=== PATIENT | female | born 1950 | race African-American/Black ===

== ENCOUNTER 2020-11-21 16:24 | Inpatient (IN) | payer OTHER ==
[~2020-11-21] VITALS: Ht 175.3 cm; Wt 119.3 kg
[2020-11-21 18:40] LABS: BASOPHILS 0.6 % (0.0-2.0); EOSINOPHILS 0.9 % (0.0-3.0); HEMATOCRIT 30.3 % (37.0-47.0); HEMOGLOBIN 9.3 gm/dL (12.0-15.0); LYMPHOCYTES 9.1 % (24.0-44.0); MCH 29.1 pg (26.0-34.0); MCHC 30.8 g/dL (28.0-37.0); MCV 94.3 fL (80.0-100.0); MONOCYTES 4.4 % (1.0-8.0); PLATELET COUNT 305 thou/uL (150-400); RBC 3.21 mil/uL (4.20-5.00); RDW 18.6 % (10.5-14.5); WBC 5.8 thou/uL (4.0-11.0)
[2020-11-21 18:53] LABS: URINE BILIRUBIN NEGATIVE (Negative); URINE BLOOD TRACE (Negative); URINE CLARITY CLEAR; URINE COLOR YELLOW; URINE GLUCOSE-RANDOM* NEGATIVE (Negative); URINE KETONES NEGATIVE (Negative); URINE LEUKOCYTES-REFLEX TRACE (Negative); URINE NITRITE-REFLEX NEGATIVE (Negative); URINE PROTEIN (DIPSTICK) 2+ (Negative); URINE UROBILINOGEN 0.2 E.U./dl (0.2-1.0)
[2020-11-21 18:54] LABS: ANION GAP 11 mmol/L (7-16); BUN 12 mg/dL (7-18); CALCIUM 8.6 mg/dL (8.5-10.1); CHLORIDE 104 mmol/L (98-107); CO2 25 mmol/L (21-32); CREATININE 1.1 mg/dL (0.6-1.0); GLUCOSE 106 mg/dL (74-106); POTASSIUM 3.8 mmol/L (3.5-5.1); SODIUM 140 mmol/L (136-145)
[2020-11-21 19:04] LABS: SQUAMOUS >10 Many /LPF (0-3)
[2020-11-21 19:04] LABS: ALBUMIN 2.1 g/dL (3.4-5.0); AMYLASE 90 U/L (25-115); DIRECT BILIRUBIN 0.1 mg/dL (<0.1-0.2); LIPASE 92 U/L (73-393); MAGNESIUM 1.7 mg/dL (1.8-2.4); PHOSPHORUS 3.1 mg/dL (2.6-4.7); SGOT 39 U/L (15-37); SGPT 17 U/L (14-59); TOTAL BILIRUBIN 0.4 mg/dL (0.2-1.0); TOTAL PROTEIN 7.2 g/dL (6.4-8.2); TROPONIN-I <0.06 ng/mL (<0.06)
[2020-11-21 19:05] LABS: BACTERIA-REFLEX None Seen /HPF (None Seen); CASTS None Seen /LPF (None Seen); CRYSTALS None Seen /LPF (None Seen); URINE RBC 0-2 Rare /HPF (0-2); URINE WBC-REFLEX 0-5 Rare /HPF (0-5)
[2020-11-21 19:14] LABS: ANISOCYTOSIS 2+
[2020-11-21 20:23] LABS: CHOLESTEROL 155 mg/dL (<200); HDL CHOLESTEROL 35 mg/dL (>40); LDL CHOLESTEROL 82 mg/dL (<100); SERUM ASSESSMENT Clear; TC:HDL 4.4 Ratio (Not establshd); TRIGLYCERIDE 193 mg/dL (<150); VLDL 39 mg/dL (<40)
[2020-11-21 23:48] VITALS: BP 96/43
[2020-11-22 01:01] VITALS: BP 115/64
[2020-11-22 01:35] VITALS: BP 119/73
[2020-11-22] MEDS ORDERED: NEURONTIN 400400 M1 PO (02:18)
[2020-11-22] MEDS ORDERED: ELIQUIS5 MG PO (02:19)
[2020-11-22] MEDS ORDERED: OMEPRAZOLE 20 M20 M1 PO (02:20)
[2020-11-22] MEDS ORDERED: CYCLOBENZAPRINE10 MG PO (02:21)
[2020-11-22] MEDS ORDERED: ONDANSETRON HCL4 M3 PO (02:24)
[2020-11-22] MEDS ORDERED: PROZAC20 MG PO (02:24)
[2020-11-22] MEDS ORDERED: MIRTAZAPINE15 M2 PO (02:25)
[2020-11-22] MEDS ORDERED: HYDROXYCHLOROQ200 M1 PO (02:27)
[2020-11-22] MEDS ORDERED: FOLIC ACID1 MG PO (02:29)
[2020-11-22] MEDS ORDERED: LEVOTHYROXINE25 MCG PO (02:30)
[2020-11-22] MEDS ORDERED: VITAMIN C500 M2 PO (02:33)
[2020-11-22] MEDS ORDERED: THERA-D100 MCG PO (02:35)
[2020-11-22] MEDS ORDERED: DAPTOMYCIN350 MG IV (02:36)
[2020-11-22] MEDS ORDERED: COLACE100 MG PO (02:37)
[2020-11-22] MEDS ORDERED: FEOSOL325 M1 PO (02:38)
[2020-11-22] MEDS ORDERED: MIRALAX119 GM PO (02:39)
[2020-11-22] MEDS ORDERED: IPRAT-ALBUT 0.5-3 ML INH (02:40)
[2020-11-22] MEDS ORDERED: MELATONIN3 M1 PO (02:41)
[2020-11-22] MEDS ORDERED: MERREM500 MG IVPB (02:42)
[2020-11-22] MEDS ORDERED: MICONAZOLE NITR45 G3 TOP (02:43)
[2020-11-22] MEDS ORDERED: SENNA PLUS TAB1 EACH PO (02:44)
[2020-11-22] MEDS ORDERED: SILVASORB480 ML TOP (02:46)
[2020-11-22] MEDS ORDERED: TYLENOL EXTRA500 MG PO (02:47)
[2020-11-22] MEDS ORDERED: ZINC SULFATE220 MG PO (02:47)
[2020-11-22 04:18] LABS: ANION GAP 12 mmol/L (7-16); BUN 11 mg/dL (7-18); CALCIUM 8.1 mg/dL (8.5-10.1); CHLORIDE 103 mmol/L (98-107); CO2 25 mmol/L (21-32); CREATININE 1.2 mg/dL (0.6-1.0); GLUCOSE 91 mg/dL (74-106); MAGNESIUM 2.2 mg/dL (1.8-2.4); POTASSIUM 3.5 mmol/L (3.5-5.1); SODIUM 140 mmol/L (136-145); TROPONIN-I <0.06 ng/mL (<0.06)
--- NOTE | 2020-11-22 05:00 | NUR ---
Arrived from ER around 0115 on 4L/NC. O2 sat of 98% , O2 titrated down to 3L/NC. Denies being short of breath. Placed on enhanced precaution , afebrile. Denies any chest pain stating she had it but now it's better. Left hip incision has sutures and has drainage , cleaned with NS and dressing applied. Right thigh has open ulcer ,dressing applied and right 2nd toe also has open area. Bed alarm on , external female cath in place. Pt. has $ 148.00 arriola in her wallet that has been verified by another RN and sent to security ,receipt given to pt.
[2020-11-22 05:13] VITALS: BP 142/92
[2020-11-22 05:19] LABS: HEMATOCRIT 28.3 % (37.0-47.0); HEMOGLOBIN 8.8 gm/dL (12.0-15.0); MCH 29.6 pg (26.0-34.0); MCV 95.5 fL (80.0-100.0); RBC 2.97 mil/uL (4.20-5.00); RDW 19.2 % (10.5-14.5); WBC 4.2 thou/uL (4.0-11.0)
--- NOTE | 2020-11-22 07:17 | EKG ---
[address] [place] [address] ELECTROCARDIOGRAM REPORT Name: SKYLAR SILVA Room #: 362-P ADM IN M.R.#: [id number] Admission: 11/21/20 Attend Phys: Samy Reina MD Discharge: Date of : 52 Report #: [id number] [facility] ED Test Date: 2020-11-21 Test Time: 16:37:10 Pat Name: SKYLAR SILVA Department: Room: 362 Gender: F Clinical Phlebotomist: MARCY : 1950 Requested By: Jossue Guillen Order Number: [id number] MD: John Viramontes Measurements Intervals [place] Rate: 105 P: 71 [place]: 191 QRS: -7 QRSD: 85 T: 39 QT: 362 QTc: 479 Interpretive Statements Sinus tachycardia Borderline T abnormalities, anterior leads Borderline prolonged QT interval No previous ECG available for comparison Electronically Signed On 11-22-2020 7:17:09 MANAGER [employer] by John Viramontes [email or web address] <ELECTRONICALLY SIGNED> By: John Viramontes MD, [facility] 11/22/20 0717 [id number] [id number] John Viramontes MD, FACC /EPI
[2020-11-22 07:45] VITALS: BP 120/74
--- NOTE | 2020-11-22 15:06 | NUR ---
INITIAL ASSESSMENT: Received consult for discharge planning. ED reviewed chart and spoke with nursing and attending physician. Pt was admitted from [facility] due to pneumonia. Pt placed in Enhanced Isolation due to positive COVID test. Pt has been febrile and is on 3L of O2. Pt is on IV abx. ID consulted. ED spoke with pt via phone. Introduced role of SW. Pt appears to be alert/orientated. Pt reports that she has been at [facility] for short term rehab. Pt normally lives at home. Pt confirms plan is to return to [facility] for continued theraoy services. Pt has a walker and w/c. Pt is not normally on O2. Pt's PCP is Dr. Gisela Reno at [facility]. [employer] planners to fax clinical info to [facility] for review. ED spoke with Ynes in admissions, who states that that pt has not tested positive at the facility prior to admission. Confirmed they are able to accept pt back when discharged. ED is following to assist as needed with discharge planning.
--- NOTE | 2020-11-22 15:52 | NUR ---
FAXED CLINICAL UPDATE TO [facility] SPOKE WITH CHRISTY IN ADM SHE RECEIVED UPDATE.
[2020-11-22 16:40] VITALS: BP 116/73
[2020-11-22 20:28] VITALS: BP 143/91
[2020-11-23 01:06] LABS: GLYCOHEMOGLOBIN (HGB A1C) 5.6 % (4.8-5.6)
[2020-11-23 02:08] LABS: HEMATOCRIT 27.7 % (37.0-47.0); HEMOGLOBIN 8.8 gm/dL (12.0-15.0); MCH 30.2 pg (26.0-34.0); MCHC 31.6 g/dL (28.0-37.0); MCV 95.6 fL (80.0-100.0); RBC 2.9 mil/uL (4.20-5.00); RDW 18.2 % (10.5-14.5)
[2020-11-23 04:52] VITALS: BP 149/100
--- NOTE | 2020-11-23 06:05 | NUR ---
Pt. up in the commode with assist at HS and again this am and had bm. Incontinent of bladder ,refused external cath initially at HS then this am she agreed to have it placed. Dr. Phoenix Sanchez came in to see pt. last night. MRSA and flu swabs sent to lab. Pt. given a cup for sputum sample. Maintaining O2 sat in the mid to upper 90's on 2L/NC. Denies being short of breath. Requested pain med for her leg and hip pain. STEF Carreon notified and order received. Hydrocodone given x 1 with some relief. Denies chest discomfort. She slept fair during the night. Ivermectin and remdesivir given to pt. Consent signed (verbal) to get records form [facility] and consent for convalescent plasma obtained and verified with another RN. Cont. on enhanced precaution , afebrile. Bed alarm on for safety.
[2020-11-23 11:38] VITALS: BP 154/97; BP 155/106
--- NOTE | 2020-11-23 12:36 | NUR ---
ED reviewed chart and spoke with nursing and attending physician. Pt remains in Enhanced Isolation due to COVID. Pt is afebrile and requiring 2L of O2. Pt is on IV abx and IV steroids. Pt had convalescent plasma last night and has been started on Remdesivir and Ivermectin. ED spoke with Ynes in admissions at [facility] to provide update. Plan is for pt to return to [facility] when medically stable. ED is following to assist as needed with discharge planning.
[2020-11-23 13:31] LABS: POTASSIUM 3.6 mmol/L (3.5-5.1)
[2020-11-23 14:34] LABS: ALBUMIN 2.1 g/dL (3.4-5.0); ANION GAP 15 mmol/L (7-16); BUN 14 mg/dL (7-18); CALCIUM 8.8 mg/dL (8.5-10.1); CHLORIDE 107 mmol/L (98-107); CO2 21 mmol/L (21-32); CREATININE 1.1 mg/dL (0.6-1.0); DIRECT BILIRUBIN < 0.1 mg/dL (<0.1-0.2); GLUCOSE 155 mg/dL (74-106); PHOSPHORUS 2.6 mg/dL (2.5-4.9); SGOT 37 U/L (15-37); SGPT 16 U/L (30-65); SODIUM 143 mmol/L (136-145); TOTAL BILIRUBIN 0.2 mg/dL (0.2-1.0); TOTAL PROTEIN 7.5 g/dL (6.4-8.2)
[2020-11-23 15:40] VITALS: BP 110/67
[2020-11-23 15:53] VITALS: BP 161/100
--- NOTE | 2020-11-23 18:15 | NUR ---
dressings changed per order. plasma transfused without problems. asking for hydrocodone to be changed to oxycodone - relayed to physician. up to chair for part of day. incontinent w. ext female cath in place. calls appropriately. hypertensive at times - physician aware.
[2020-11-23 20:00] VITALS: BP 156/103
[2020-11-23 21:00] VITALS: BP 156/103
[2020-11-24 04:25] VITALS: BP 169/105
--- NOTE | 2020-11-24 04:27 | NUR ---
PROGRESS PT A/O X4 BP ELEVATED 160'S/100'S PULSE IN 80'S TELE READING SINUS RHYTHM. MULTIPLE DRESSING NOTED TO LEFT HIP, RIGHT WHITE BOTH HEELS AND ANKLES ALL C/D/I. PT REPOSITIONED Q2HRS ABLE TO HELP TURN SELF. DENIED NEED FOR PAIN MEDICATION. LUNGS DIMINISHED AND PT HAS A PRODUCTIVE COUGH COUGHING UP SMALL THICK PIECES OF SPUTUM THAT ARE THICK AND BROWN SPECKS AND PINK TINGE NOTED TO IT. O2 SATS DROPPED TO 70'S TO LOW 80'S AROUND 4 AM RT GAVE BREATHING TREATMENT AND INCREASED O2 TO 6 LITERS VIA NC. SATS IN MID 90'S. PT HAS A KSENIA SINGLE LUMEN PICC WITH GOOD BLOOD RETURN AND FLUSHES WITHOUT DIFFICULTY. PURE WICK EXTERNAL BEAVERS IN PLACE DRAINING CLEAR YELLOW URINE.
[2020-11-24 05:54] LABS: ABSOLUTE NEUTROPHILS 6.5 thou/uL (1.4-8.2); BASOPHILS 0.1 % (0.0-2.0); HEMATOCRIT 29.8 % (37.0-47.0); HEMOGLOBIN 9.2 gm/dL (12.0-15.0); LYMPHOCYTES 8.3 % (24.0-44.0); MCH 29.2 pg (26.0-34.0); MCHC 30.7 g/dL (28.0-37.0); MCV 94.9 fL (80.0-100.0); PLATELET COUNT 339 thou/uL (150-400); POLYS 88.6 % (36.0-66.0); RBC 3.14 mil/uL (4.20-5.00); RDW 18.6 % (10.5-14.5); WBC 7.3 thou/uL (4.0-11.0)
[2020-11-24 06:01] LABS: FIBRINOGEN 373.8 mg/dL (210-360); INR 1.1; PROTIME 11.7 Seconds (9.3-11.4)
[2020-11-24 06:32] LABS: ALBUMIN 1.9 g/dL (3.4-5.0); ANION GAP 15 mmol/L (7-16); BUN 15 mg/dL (7-18); CALCIUM 8.4 mg/dL (8.5-10.1); CHLORIDE 108 mmol/L (98-107); CO2 22 mmol/L (21-32); CREATININE 1.1 mg/dL (0.6-1.0); DIRECT BILIRUBIN < 0.1 mg/dL (<0.1-0.2); GLUCOSE 112 mg/dL (74-106); PHOSPHORUS 2.6 mg/dL (2.5-4.9); POTASSIUM 3.7 mmol/L (3.5-5.1); SGOT 37 U/L (15-37); SGPT 18 U/L (30-65); SODIUM 145 mmol/L (136-145); TOTAL BILIRUBIN 0.2 mg/dL (0.2-1.0)
[2020-11-24 07:47] VITALS: BP 176/112
--- NOTE | 2020-11-24 08:00 | HC ---
[facility] [place] [address] CONSULTATION Name: SKYLAR SILVA Room #: 362-P ADM IN M.R.#: [id number] Admission: 11/21/20 Attend Phys: Samy Reina MD Discharge: Date of : 52 Report #: [id number] THIS REPORT FOR: cc: Zachary Sanchez MD, Christopher B. MD Althoff,João Qureshi MD ~ DATE OF SERVICE: 11/22/2020 CHIEF COMPLAINT: Multiple lower extremity ulcerations. HISTORY OF PRESENT ILLNESS: This is a 69-year-old female patient who was admitted through the Emergency Department and is a resident at the [facility]. She apparently has been complaining of chest pain, was admitted. She was noted to have multiple ulcerations on her lower extremities. She has had 5 surgeries to her left hip and some residual sutures in place. I have been asked to see her with regard to wound care. PAST MEDICAL HISTORY: Anxiety, hypothyroidism, MRSA infection, left hip infection, renal insufficiency requiring hemodialysis, rheumatoid arthritis, obesity, depression, hepatitis C and anemia. She has had multiple surgeries on her left hip, the details of which are not available for my review at this time. SOCIAL HISTORY: The patient lives a nursing care facility. No current use of alcohol or tobacco use. FAMILY HISTORY: Noncontributory. CURRENT MEDICATIONS: Include Tylenol, ipratropium, albuterol, Eliquis, vitamin C, atorvastatin, Zithromax, vitamin D, daptomycin, dexamethasone, famotidine, hydrocodone, ivermectin, metoprolol, nitroglycerin, ondansetron, remdesivir, thiamine, zinc sulfate. ALLERGIES: CODEINE AND ASPIRIN. REVIEW OF SYSTEMS: CONSTITUTIONAL: The patient denies fever, chills or weight loss. NEUROLOGICAL: The patient denies focal weakness, numbness or tingling. EYES: The patient denies visual changes, redness, or drainage. ENT: The patient denies earache, nasal drainage or sore throat. CARDIOVASCULAR: The patient has been complaining of chest pain. Denies palpitations or diaphoresis. PULMONARY: The patient denies cough or shortness of breath. GASTROINTESTINAL: The patient denies nausea, vomiting, diarrhea or abdominal pain. ORTHOPEDIC: The patient is aware of ulcerations on the lower extremities as [facility] [address] [place] [address] CONSULTATION Name: SKYLAR SILVA Room #: 362-P [facility] IN .R.#: [id number] Admission: 11/21/20 Attend Phys: Samy Reina MD Discharge: Date of : 52 Report #: [id number] well as the left hip incision area. Other systems in a 14-point review of systems are negative. PHYSICAL EXAMINATION: VITAL SIGNS: Include temperature 37.1, pulse 86, respiratory rate 16, blood pressure 116/73. GENERAL: This is a somewhat chronically ill-appearing female patient who appears to be in minimal distress. HEENT: Head normocephalic. NECK: Supple. LUNGS: Clear. ABDOMEN: Soft. EXTREMITIES: Demonstrate multiple ulcerations. She has a large ulceration to her posterolateral left heel. She has a smaller ulceration on her right heel, there is a larger vascular versus venous ulcer to the right lower leg. She has multiple small wounds versus ulcerations to the right thigh. There is also a small ulceration, possibly arterial to the dorsal aspect of the right second toe with a mix of granulation little surrounding eschar. The left thigh demonstrates that there is an old incision line. There are buried sutures, some of which can be seen in place. LABORATORY DATA: Laboratory studies include sodium 140, potassium 3.5, chloride 103, CO2 of 25, BUN 11, creatinine 1.2, glucose 91. White blood cell count 4.2 with a hemoglobin of 8.8, hematocrit of 28.3. She is COVID-19 positive. CLINICAL IMPRESSION: 1. Stage 3 pressure ulceration to the left heel and right heel vascular versus venous ulceration to the right lower leg, small ulceration versus surgical wound to the right thigh, vascular ulceration to the dorsal aspect of the right second toe and old surgical incision line to the left hip with buried sutures remaining in place. 2. COVID-19 pneumonia. 3. Ongoing chest pain, being evaluated. 4. Hypertension. RECOMMENDATIONS: At this point in time, we will recommend a quarter strength Dakin's moist gauze to both heels and lower leg, right thigh and right dorsal second toe. Recommend Xeroform gauze over the left hip. We will need to try to remove some of the buried sutures if at all possible. She will need continued medical management of her other medical problems including COVID-19 pneumonia, [address] [address] CONSULTATION Name: SKYLAR SILVA Room #: 362-P ADM IN M.R.#: [id number] Admission: 11/21/20 Attend Phys: Samy Reina MD Discharge: Date of : 52 Report #: [id number] ongoing nutritional support. I appreciate being asked to see her in consultation. <ELECTRONICALLY SIGNED> By: João Rivera MD 11/24/20 0800 [id number] [id number] João Rivera MD /nt
[2020-11-24 09:52] LABS: ANISOCYTOSIS 1+; OVALOCYTES OCCASIONAL; POIKILOCYTOSIS SLIGHT; TEARDROPS OCCASIONAL
--- NOTE | 2020-11-24 12:53 | NUR ---
ED reviewed chart and spoke with nursing and attending physician. Pt remains in Enhanced Isolation due to COVID. Pt is afebrile and is requiring up to 13L of O2. Pt is on IV abx and IV steroids. Pt is on IV lasix. Pt is completing Remdesivir and Ivermectin. No weekend discharge planned. ED provided update to Ynes in admissions at [facility]. Plan is for pt to return to [facility] when medically stable. Will need insurance authorization for admission to [facility]. ED is following to assist as needed with discharge planning.
[2020-11-24 15:51] VITALS: BP 170/111
--- NOTE | 2020-11-24 17:52 | NUR ---
ASSUMED CARE OF PT AT 0700. PT APPEARS MORE WEAK THIS MORNING. BREATHING MORE LABORED, RR 30's. REQUIRING MORE OXYGEN. COARSE LUNG SOUNDS. INCREASED TO 15L NC. DIURESED WITH GOOD EFFECT. NOW ON 8-10L NC. LOTS OF OUTPUT. FEELING BETTER. PULM CONSULTED. MASSIMOM.
[2020-11-24 20:07] VITALS: BP 145/99
[2020-11-25 05:11] VITALS: BP 155/98
[2020-11-25 06:57] LABS: ALBUMIN 1.9 g/dL (3.4-5.0); CALCIUM 8.5 mg/dL (8.5-10.1); CREATININE 1.1 mg/dL (0.6-1.0); DIRECT BILIRUBIN 0.1 mg/dL (<0.1-0.2); PHOSPHORUS 3.1 mg/dL (2.5-4.9); POTASSIUM 3.4 mmol/L (3.5-5.1); TOTAL BILIRUBIN 0.3 mg/dL (0.2-1.0); TOTAL PROTEIN 6.9 g/dL (6.4-8.2)
--- NOTE | 2020-11-25 07:04 | NUR ---
PROGRESS PT A/O X4 VERY FATIGUED TODAY SLEEPING MOST OF SHIFT WOKES FOR CARES. DENIES PAIN OR NEED FOR PAIN MEDS, IV ANTIBIOTICS INFUSES D ORDERED PT ENCOURAGED TO DRINK WATER. DRESSINGS INTACT WOUNDS NOT VISUALIZED BY THIS RN ASSISTS IN REPOSITIONING SELF. CONTINUE POC.
[2020-11-25 07:20] VITALS: BP 152/94
[2020-11-25 12:17] VITALS: BP 144/93
--- NOTE | 2020-11-25 14:34 | NUR ---
CARE ASSUMED AT 0700, PT ALERT AND ORIENTED X4, DENIES ANY PAIN, NAUSEA AND VOMITTING. PT WAS ON 6L PER PM NURSE REPORT. PT WAS PLACED ON 11L OF OXYEGN BUT CONTINUED TO DESAT PER RT (AMBER), RT ENDED UP PLAING PT ON 15L. PAGED DR. FLORES AND GAVE ORDERS TO PLACE PT ON OPTIFLOW AND PRN BIPAP IF NEED. PT ON OPTIFLOW NOW, NO SIGNS OF DISTRESS NOTED. FALL PRECAUTION IN PLACE. WILL CONTINUE TO MONITOR.
[2020-11-25 15:56] VITALS: BP 136/91
[2020-11-25 19:19] VITALS: BP 156/108
[2020-11-26 04:36] VITALS: BP 168/107
[2020-11-26 06:50] LABS: ABSOLUTE NEUTROPHILS 7.4 thou/uL (1.4-8.2); BASOPHILS 0.2 % (0.0-2.0); HEMATOCRIT 32.1 % (37.0-47.0); HEMOGLOBIN 9.9 gm/dL (12.0-15.0); LYMPHOCYTES 5.7 % (24.0-44.0); MCH 28.9 pg (26.0-34.0); MCHC 30.9 g/dL (28.0-37.0); MCV 93.4 fL (80.0-100.0); MONOCYTES 2.7 % (1.0-8.0); POLYS 91.4 % (36.0-66.0); RBC 3.44 mil/uL (4.20-5.00); RDW 18.7 % (10.5-14.5); WBC 8.1 thou/uL (4.0-11.0)
[2020-11-26 07:04] LABS: ALBUMIN 1.9 g/dL (3.4-5.0); CALCIUM 8.8 mg/dL (8.5-10.1); CREATININE 1.1 mg/dL (0.6-1.0); D-DIMER 3.58 ug/mLFEU (0.19-0.50); DIRECT BILIRUBIN 0.1 mg/dL (<0.1-0.2); FIBRINOGEN 321.9 mg/dL (210-360); INR 1.2; POTASSIUM 4.7 mmol/L (3.5-5.1); PROTIME 12.6 Seconds (9.3-11.4); TOTAL BILIRUBIN 0.4 mg/dL (0.2-1.0); TOTAL PROTEIN 7.1 g/dL (6.4-8.2)
[2020-11-26 07:05] LABS: PLATELET COUNT 445 thou/uL (150-400)
[2020-11-26 07:27] VITALS: BP 156/101
--- NOTE | 2020-11-26 08:10 | NUR ---
progress pt lethargic ast night sleeping and pulling optiflow off replaced throughout night pt reports pain to legs and arms. advised to request pain meds as needed and to try and sit up in chair today
[2020-11-26 16:23] VITALS: BP 134/80
--- NOTE | 2020-11-26 20:05 | NUR ---
A/O X4. TOLERATED ON OPTIFOLLOW. DRESSING CHANGED PRO ORDER. SOLWLY TOWARDS POC GOALS.
[2020-11-27 03:54] VITALS: BP 162/194
--- NOTE | 2020-11-27 06:45 | NUR ---
PROGRESS PT A/O X4 UP WITH 1 GB AND WALKER. REMAINS ON OPTIFLOW BUT PERCENTAGE OF O2 TURNED DOWN TO 40% PT TOLERATING BETTER. IV ANTIBIOTICS INFUSED ORDERED TAKING OXYCODONE SPARINGLY FOR PAIN IN LEGS, RT TX'S CONTINUE LEAVING OPTIFLOW IN PLACE. CONTINUE TO MONITOR.
[2020-11-27 08:09] VITALS: BP 186/109
[2020-11-27 08:41] LABS: ANION GAP 9 mmol/L (7-16); BUN 32 mg/dL (7-18); CALCIUM 8.6 mg/dL (8.5-10.1); CHLORIDE 108 mmol/L (98-107); CO2 25 mmol/L (21-32); DIRECT BILIRUBIN < 0.1 mg/dL (<0.1-0.2); GLUCOSE 156 mg/dL (74-106); PHOSPHORUS 3.4 mg/dL (2.6-4.7); SGOT 61 U/L (15-37); SGPT 42 U/L (14-59); SODIUM 142 mmol/L (136-145); TOTAL BILIRUBIN 0.2 mg/dL (0.2-1.0); TOTAL PROTEIN 6.4 g/dL (6.4-8.2)
--- NOTE | 2020-11-27 13:40 | NUR ---
ED reviewed chart and spoke with nursing and attending physician. Pt remains in Enhanced Isolation due to COVID. Pt is afebrile and on optiflow. Pt is on IV abx and IV steroids. Pt is completing course of Remdesivir. ED faxed clinical updates to [facility] and spoke with Ynes in admissions to provide update. Plan is for pt to return to [facility] when medically stable. ED is following to assist as needed with discharge planning.
[2020-11-27 15:44] LABS: BE(vivo) -0.3 mmol/L (-2 to +3); HCO3 23.6 mmol/L (22.0-26.0); PCO2 36.1 mmHg (35.0-45.0); PO2 81.5 mmHg (80.0-100.0); pH 7.434 (7.360-7.450); sO2 96.4 % (92.0-98.0)
[2020-11-27 15:54] VITALS: BP 151/93
--- NOTE | 2020-11-27 18:19 | NUR ---
PLEASANT WITH CARE. SHE IS ALERT ORIENTED X4. PLEASANT WITH CARES. WILL CONT TO MONITOR AND ASSIST NEEDED.
[2020-11-27 20:45] VITALS: BP 128/84
[2020-11-28 04:46] VITALS: BP 162/109
--- NOTE | 2020-11-28 05:22 | NUR ---
PT MAKING POOR PROGRESS TOWARDS GOALS. RT REPORTING THAT HE WAS UNABLE TO LOWER PTS OXYGEN REQUIREMENTS WITHOUT DESATURATIONS BELOW 89%. O2 AT 55L PER OPTIFLO AT 75% FIO2. PT CALM, QUIET OVERNIGHT. DID NOT VOICE ANY COMPLAINTS.
[2020-11-28 07:03] LABS: ANION GAP 6 mmol/L (7-16); BUN 38 mg/dL (7-18); CALCIUM 9.1 mg/dL (8.5-10.1); CHLORIDE 107 mmol/L (98-107); CO2 26 mmol/L (21-32); CREATININE 1.1 mg/dL (0.6-1.0); DIRECT BILIRUBIN < 0.1 mg/dL (<0.1-0.2); GLUCOSE 184 mg/dL (74-106); PHOSPHORUS 3.4 mg/dL (2.6-4.7); POTASSIUM 4.8 mmol/L (3.5-5.1); SGOT 62 U/L (15-37); SGPT 56 U/L (14-59); SODIUM 139 mmol/L (136-145); TOTAL BILIRUBIN 0.3 mg/dL (0.2-1.0); TOTAL PROTEIN 6.9 g/dL (6.4-8.2)
[2020-11-28 07:40] VITALS: BP 154/93
[2020-11-28 15:39] VITALS: BP 138/114
--- NOTE | 2020-11-28 16:36 | NUR ---
PATIENT HAS RESTED IN ROOM THROUGH THE DAY. SUTURES TAKEN OUT OF LEFT HIP TODAY. ON NC AT THIS TIME. TOLERATING WELL. WILL CONT WITH PLAN OF CARE.
[2020-11-28 20:40] VITALS: BP 147/91
--- NOTE | 2020-11-29 05:06 | NUR ---
PATIENT REMAINS A/O. DENIES SOA, N/V. C/O PAIN. PAIN MEDS GIVEN ORDERED. AFEBRILE. REMAINS ON OPTI FLOW. VSS. REFUSES TURN DUE TO PAIN ON L HIP. DENIES NEEDS. WILL KEEP MONITORING.
[2020-11-29 06:22] LABS: ANION GAP 14 mmol/L (7-16); BUN 39 mg/dL (7-18); CALCIUM 8.9 mg/dL (8.5-10.1); CHLORIDE 104 mmol/L (98-107); CO2 21 mmol/L (21-32); CREATININE 1.1 mg/dL (0.6-1.0); DIRECT BILIRUBIN < 0.1 mg/dL (<0.1-0.2); GLUCOSE 253 mg/dL (74-106); POTASSIUM 5.2 mmol/L (3.5-5.1); SGOT 114 U/L (15-37); SGPT 134 U/L (30-65); SODIUM 139 mmol/L (136-145); TOTAL BILIRUBIN 0.3 mg/dL (0.2-1.0); TOTAL PROTEIN 7.6 g/dL (6.4-8.2)
[2020-11-29 08:03] VITALS: BP 158/93
--- NOTE | 2020-11-29 15:52 | NUR ---
ED reviewed chart and spoke with nursing and attending physician. Pt remains in Enhanced Isolation due to COVID. Pt is afebrile and requiring optiflow. Pt is on IV abx and IV steroids. Pt is completing course of Remdesivir. ED updated Ynes at [facility]. ED is following to assist as needed with discharge planning.
[2020-11-29 16:00] VITALS: BP 146/92
--- NOTE | 2020-11-29 18:55 | NUR ---
ASSUMED PATIENT CARE AT 0700. A/O X4. ON OPTIFOLLOW 40L/40% O2 SAT 92%. PROGRESSING TOWARDS POC GOALS.
[2020-11-29 21:33] VITALS: BP 160/96
[2020-11-30 03:55] VITALS: BP 134/80
--- NOTE | 2020-11-30 04:35 | NUR ---
RECIEVED CARE OF THIS PATIENT AT 1900. PATIENT ORIENTED X4 BUT DROWSEY. HAD TO WAKE UP TO DO ASSESSMENT AND GIVE MEDS. WAKES EASY BUT GOES BACK TO SLEEP QUICK. PATIENT REMAINS ON BEDREST. HAS WOUNDS ON L HIP AND MELISA HEELS. DRESSING ON HIP D/I. PATIENT ON TELE RUNNING NORMAL SINUS RHYTHM. HAS EXTERNAL CATH. O2 WAS CHANGED TO NC AT BEGINNING OF SHIFT. SATTING IN MID 90'S MOST OF NIGHT. AROUND 0300 PATIENT'S SATS BEGAN TO DROP DOWN TO LOWER 90'S. RAISED O2 FROM 6L TO 7L/NC. SATS ONCE AGAIN IN THE MID 90'S. DENIES PAIN.
[2020-11-30 06:35] LABS: ANION GAP 9 mmol/L (7-16); BUN 44 mg/dL (7-18); CALCIUM 9.1 mg/dL (8.5-10.1); CHLORIDE 105 mmol/L (98-107); CO2 26 mmol/L (21-32); DIRECT BILIRUBIN < 0.1 mg/dL (<0.1-0.2); GLUCOSE 220 mg/dL (74-106); PHOSPHORUS 3.8 mg/dL (2.6-4.7); POTASSIUM 5.2 mmol/L (3.5-5.1); SGOT 56 U/L (15-37); SGPT 110 U/L (14-59); SODIUM 140 mmol/L (136-145); TOTAL BILIRUBIN 0.3 mg/dL (0.2-1.0)
[2020-11-30 08:38] VITALS: BP 157/105
--- NOTE | 2020-11-30 15:20 | NUR ---
ED reviewed chart and spoke with nursing and attending physician. Pt remains in Enhanced Isolation due to COVID. Pt is afebrile and on 4-5L of O2. Pt is on IV abx and IV steroids. Completing course of Remdesivir. Discharge back to [facility] is anticiated in 1-2 days. ED faxed clinical/therapy updates to [facility] for review. Provided update to Ynes in admissions. Will need insurance auth for SNF. ED spoke with pt via phone. Pt is agreeable with discharge plan. ED is following to assist as needed with discharge planning.
[2020-11-30 16:42] VITALS: BP 138/94
[2020-11-30 19:14] VITALS: BP 128/79
[2020-12-01 03:22] VITALS: BP 147/91
[2020-12-01 04:52] LABS: ANION GAP 10 mmol/L (7-16); BUN 42 mg/dL (7-18); CALCIUM 8.6 mg/dL (8.5-10.1); CHLORIDE 105 mmol/L (98-107); CO2 24 mmol/L (21-32); CREATININE 1.2 mg/dL (0.6-1.0); DIRECT BILIRUBIN < 0.1 mg/dL (<0.1-0.2); GLUCOSE 327 mg/dL (74-106); PHOSPHORUS 3.5 mg/dL (2.5-4.9); POTASSIUM 4.8 mmol/L (3.5-5.1); SGOT 48 U/L (15-37); SGPT 103 U/L (30-65); SODIUM 139 mmol/L (136-145); TOTAL BILIRUBIN 0.3 mg/dL (0.2-1.0); TOTAL PROTEIN 6.4 g/dL (6.4-8.2)
--- NOTE | 2020-12-01 05:32 | NUR ---
PROGRESS PT A/O X4 DENIES PAIN LUNGS SOUNDS ARE DIMINISHED WITH SOME COASE CRACKLES NOTED IN UPPER MESA, NO COUGH NOTED NOT BRINGING UP ANY SPUTUM. 02 AT 4 LITERS VIA NC SATS FROM 92 TO 94%. ABDOMEN SOFT WITH BS POSITIVE , HAS EXTERNAL CATHETER IN PLACE NO BM THIS SHIFT. REMDESIVIR CONTINUES DOMINIQUE KSENIA PICC, GOOD BLLOD REURN FLUSHES WITHOUT DIFFICULTY AM LABS DRAWN WITHOUT DIFFICULTY. PT HAS DRSG O LEFT HIP INCISION C/D/I, BILATERAL HEELS WRAPPED AND INTACT RIGHT HIP SHANKAR. WOUND CARE DAILY. CONTINUE TO MONITOR.
[2020-12-01 07:29] VITALS: BP 156/96
--- NOTE | 2020-12-01 11:57 | NUR ---
FAXED CLINICAL UPDATE TO [facility] RECEIVED CONFIRMATION AND LEFT MSG WITH CHRISTY IN ADM TO SUBMIT FOR AUTH PT READY FOR DC TOMORROW.
--- NOTE | 2020-12-01 13:05 | NUR ---
ED reviewed chart and spoke with nursing and attending physician. Pt remains in Enhanced Isolation due to COVID. Pt is afebrile and on 4L of O2. Pt is on IV abx and IV steroids. Pt is completing course of Remdesivir today. Anticipate discharge back to [facility] tomorrow. ED updated Ynes in admissions at [facility], who confirms they are able to accept pt back over the weekend. senior materials planner to fax clinical/therapy updates to [facility] for review. Will need insurance auth for admission to [facility]. ED spoke with pt via phone to discuss weekend discharge. Pt is aware and agreeable with discharge plan. Staff to contact [facility] over the weekend to coordinate pt's discharge. Chart copy will need to be completed. ED is available to assist as needed with discharge planning. [facility]-- [facility]: [phone]
[2020-12-01 15:32] VITALS: BP 131/72
[2020-12-01 19:26] VITALS: BP 141/88
--- NOTE | 2020-12-01 23:31 | NUR ---
PT ALERT AND ORIENTED X4 VSS. NO C/O CP . NO SOA . WILL CONTINUE TO MONITOR FOR CHANGES. NOTIFIED Lisy RAI OF CRITICAL VANC LEVEL 41. SHE STATED TO CALL PEGGY.ATTEMPTED TO NOTIFIY PEGGY. NO CALL BACK OF YET. NEXT VANC DOSE DUE TOMORROW NIGHT. WILL F/U IN AM IF NO CALL BACK TONIGHT.
[2020-12-02 04:40] VITALS: BP 171/98
--- NOTE | 2020-12-02 04:49 | NUR ---
PT RESTING QUIETLY. NO C/O PAIN . NO S/S DISTRESS. BP MODERATELY ELEVATED.
[2020-12-02 05:10] VITALS: BP 172/106
[2020-12-02 05:18] VITALS: BP 154/95
[2020-12-02 07:41] VITALS: BP 155/94
[2020-12-02 15:59] VITALS: BP 131/72
--- NOTE | 2020-12-02 18:50 | NUR ---
ASSUMED PATIENT CARE AT 0700. A/O X4. AFEBRILE. VSS. PICC LINE DRESSSING CHANGED. ON . PROGRESSING TOWARDS POC GOALS.
[2020-12-02 20:33] VITALS: BP 129/78
[2020-12-03 03:16] VITALS: BP 168/98
[2020-12-03 05:58] LABS: ALBUMIN 2.1 g/dL (3.4-5.0); CALCIUM 8.5 mg/dL (8.5-10.1); CREATININE 1.2 mg/dL (0.6-1.0); POTASSIUM 4.6 mmol/L (3.5-5.1)
--- NOTE | 2020-12-03 06:00 | NUR ---
Pt. slept well during the night. Assisted to reposition for comfort. She woke up with headache ,hydrocodone given with good relief. Maintaining O2 sat in the mid 90's on 3L/NC. No respiratory distress. Cont. on enhanced precaution , afebrile. External cath in place. Making progress towards care plan goals.
[2020-12-03 16:47] VITALS: BP 147/84
--- NOTE | 2020-12-03 18:26 | NUR ---
ASSUMED PATIENT CARE AT 0700. A/O X4. WOUND DRESSING CHANGE PER ORDER. TITRATED TO 3L/NC. SLOWLY TOWARDS POC GOALS.
[2020-12-03 20:10] VITALS: BP 138/85
[2020-12-04 03:02] VITALS: BP 153/89
--- NOTE | 2020-12-04 03:52 | NUR ---
Pt. slept fair during the night. Repositioned prn for comfort. Denies any pain at this time. Maintaining O2 sat in the low to mid 90's on 3L/NC. No respiratory distress. Cont. on enhanced precaution , afebrile. Dressing on right thigh and cedric heels clean,dry and intact. Bed alarm on. Making some progress towards care plan goals.
[2020-12-04 07:38] VITALS: BP 147/89
[2020-12-04] MEDS ORDERED: METOPROLOL SUCC50 MG PO (08:54)
[2020-12-04] MEDS ORDERED: PREDNISONE 20 M20 M1 PO (08:56)
--- NOTE | 2020-12-04 10:30 | NUR ---
DISCHARGE NOTE: ED reviewed chart and spoke with nursing and attending physician. Pt is medically stable for discharge back to [facility] today. ED faxed discharge orders/summary to [facility] and notified Ynes in admissions of pt's discharge. Awaiting insurance authorization, in order to arrange transportation. ED spoke with pt via phone to provide update. Pt is aware of discharge and agreeable [facility] plan. Chart copy requested. ED is following to finalize discharge plan.
[2020-12-04 12:17] VITALS: BP 140/85
--- NOTE | 2020-12-04 15:37 | NUR ---
multiple attempts made to call [employer] to give report. voice mail left. unable to reach nurse. will keep trying..
== END 2020-12-04 15:41 | DRG 871 ==
LOC: ER 16:24 → EROBS 19:56 → 3W 19:56
PROVIDERS: Emergency Medicine; Hospitalist; Nurse Practitioner Adult Health; Nurse Practitioner Family; Specialist; ADMIT Hospitalist; ATTEND Hospitalist
PROC: XW13325 Transfusion of Convalescent Plasma (Nonautologous) into Peripheral Vein, Percutaneous Approach, New Technology Group 5 (ICD-10-PCS; principal; 2020-11-23)
PROC: 02HV33Z Insertion of Infusion Device into Superior Vena Cava, Percutaneous Approach (ICD-10-PCS; principal; 2020-11-23)
PROC: XW033E5 Introduction of Remdesivir Anti-infective into Peripheral Vein, Percutaneous Approach, New Technology Group 5 (ICD-10-PCS; principal; 2020-11-23)
PROC: 5A0945A Assistance with Respiratory Ventilation, 24-96 Consecutive Hours, High Flow/Velocity Cannula (ICD-10-PCS; 2020-11-25)
PROC: 5A0935A Assistance with Respiratory Ventilation, Less than 24 Consecutive Hours, High Flow/Velocity Cannula (ICD-10-PCS; 2020-11-29)
PROC: 5A0935A Assistance with Respiratory Ventilation, Less than 24 Consecutive Hours, High Flow/Velocity Cannula (ICD-10-PCS; 2020-11-30)
PROC: 5A0935A Assistance with Respiratory Ventilation, Less than 24 Consecutive Hours, High Flow/Velocity Cannula (ICD-10-PCS; 2020-12-01)
DX: A41.9 Sepsis, unspecified organism (principal); L89.623 Pressure ulcer of left heel, stage 3; U07.1 COVID-19; E43 Unspecified severe protein-calorie malnutrition; J12.82 Pneumonia due to coronavirus disease 2019; L89.613 Pressure ulcer of right heel, stage 3; J96.01 Acute respiratory failure with hypoxia; L97.819 Non-pressure chronic ulcer of other part of right lower leg with unspecified severity; T84.52XA Infection and inflammatory reaction due to internal left hip prosthesis, initial encounter; M00.052 Staphylococcal arthritis, left hip; I13.0 Hypertensive heart and chronic kidney disease with heart failure and stage 1 through stage 4 chronic kidney disease, or unspecified chronic kidney disease; R65.20 Severe sepsis without septic shock; I50.9 Heart failure, unspecified; F41.9 Anxiety disorder, unspecified; E03.9 Hypothyroidism, unspecified; M06.9 Rheumatoid arthritis, unspecified; E66.9 Obesity, unspecified; F32.9 Major depressive disorder, single episode, unspecified; Z96.651 Presence of right artificial knee joint; Z96.642 Presence of left artificial hip joint; D64.9 Anemia, unspecified; L97.519 Non-pressure chronic ulcer of other part of right foot with unspecified severity; E83.42 Hypomagnesemia; N18.2 Chronic kidney disease, stage 2 (mild); B95.62 Methicillin resistant Staphylococcus aureus infection as the cause of diseases classified elsewhere; Z88.6 Allergy status to analgesic agent; Z86.14 Personal history of Methicillin resistant Staphylococcus aureus infection; Z68.38 Body mass index [BMI] 38.0-38.9, adult; Z86.19 Personal history of other infectious and parasitic diseases; Z90.49 Acquired absence of other specified parts of digestive tract; Z86.718 Personal history of other venous thrombosis and embolism
CPT/HCPCS: 10879

== ENCOUNTER 2020-12-18 14:39 | Inpatient (IN) | payer OTHER ==
[~2020-12-18] VITALS: Ht 175.3 cm; Wt 124.9 kg
[~2020-12-18 14:39] MED LIST: COLACE100 MG PO; CYCLOBENZAPRINE10 MG PO; DAPTOMYCIN350 MG IV; ELIQUIS5 MG PO; FEOSOL325 M1 PO; FOLIC ACID1 MG PO; HYDROXYCHLOROQ200 M1 PO; IPRAT-ALBUT 0.5-3 ML INH; LEVOTHYROXINE25 MCG PO; MELATONIN3 M1 PO; MERREM500 MG IVPB; METOPROLOL SUCC50 MG PO; MICONAZOLE NITR45 G3 TOP; MIRALAX119 GM PO; MIRTAZAPINE15 M2 PO; NEURONTIN 400400 M1 PO; OMEPRAZOLE 20 M20 M1 PO; ONDANSETRON HCL4 M3 PO; PREDNISONE 20 M20 M1 PO; PROZAC20 MG PO; SENNA PLUS TAB1 EACH PO; SILVASORB480 ML TOP; THERA-D100 MCG PO; TYLENOL EXTRA500 MG PO; VITAMIN C500 M2 PO; ZINC SULFATE220 MG PO
[2020-12-18 14:40] VITALS: BP 153/89
[2020-12-18 15:55] LABS: ABSOLUTE NEUTROPHILS 6.9 thou/uL (1.4-8.2); BASOPHILS 0.5 % (0.0-2.0); EOSINOPHILS 1.7 % (0.0-3.0); HEMATOCRIT 30.4 % (37.0-47.0); HEMOGLOBIN 9.3 gm/dL (12.0-15.0); LYMPHOCYTES 11.2 % (24.0-44.0); MCH 30.3 pg (26.0-34.0); MCHC 30.4 g/dL (28.0-37.0); MCV 99.5 fL (80.0-100.0); MONOCYTES 4.3 % (1.0-8.0); PLATELET COUNT 251 thou/uL (150-400); POLYS 82.3 % (36.0-66.0); RBC 3.06 mil/uL (4.20-5.00); RDW 23.3 % (10.5-14.5); WBC 8.4 thou/uL (4.0-11.0)
[2020-12-18 15:59] LABS: CALCIUM 8.2 mg/dL (8.5-10.1); CREATININE 1.2 mg/dL (0.6-1.0); POTASSIUM 4.6 mmol/L (3.5-5.1)
[2020-12-18 16:15] LABS: ALBUMIN 2.3 g/dL (3.4-5.0); DIRECT BILIRUBIN 0.1 mg/dL (<0.1-0.2); TOTAL BILIRUBIN 0.5 mg/dL (0.2-1.0); TOTAL PROTEIN 6.3 g/dL (6.4-8.2)
[2020-12-18 16:26] LABS: BE(vivo) 1.7 mmol/L (-2 to +3); HCO3 25.2 mmol/L (22.0-26.0); PCO2 35.2 mmHg (35.0-45.0); PO2 108.5 mmHg (80.0-100.0); pH 7.473 (7.360-7.450); sO2 98.3 % (92.0-98.0)
[2020-12-18 18:21] VITALS: BP 157/64
[2020-12-18 18:58] LABS: FOLIC ACID 26.8 ng/mL (8.6-58.9)
[2020-12-19 00:31] VITALS: BP 122/77
[2020-12-19 03:57] VITALS: BP 144/86
[2020-12-19 05:53] LABS: BASOPHILS 0.5 % (0.0-2.0); EOSINOPHILS 0.1 % (0.0-3.0); HEMATOCRIT 28.7 % (37.0-47.0); HEMOGLOBIN 8.7 gm/dL (12.0-15.0); LYMPHOCYTES 5.1 % (24.0-44.0); MCH 29.8 pg (26.0-34.0); MCHC 30.4 g/dL (28.0-37.0); MCV 98.1 fL (80.0-100.0); MONOCYTES 1.2 % (1.0-8.0); PLATELET COUNT 223 thou/uL (150-400); POLYS 93.1 % (36.0-66.0); RBC 2.93 mil/uL (4.20-5.00); RDW 22.3 % (10.5-14.5); WBC 8.6 thou/uL (4.0-11.0)
[2020-12-19 06:17] LABS: CALCIUM 8.6 mg/dL (8.5-10.1); CREATININE 1.1 mg/dL (0.6-1.0); POTASSIUM 5.2 mmol/L (3.5-5.1)
--- NOTE | 2020-12-19 06:48 | EKG ---
[address] [place] [employer] [place] [address] ELECTROCARDIOGRAM REPORT Name: SKYLAR SILVA Room #: 354-P ADM IN M.R.#: [id number] Admission: 12/18/20 Attend Phys: Gallo Vasques MD Discharge: Date of : 52 Report #: [id number] [facility] ED Test Date: 2020-12-18 Test Time: 15:16:08 Pat Name: SKYLAR SILVA Department: Room: 354 Gender: F Planned Giving Officer: RADHA : 1950 Requested By: Eduin Montesinos Order Number: [id number] MD: John Viramontes Measurements Intervals [place] Rate: 96 P: 35 [place]: 184 QRS: -3 QRSD: 82 T: 32 QT: 376 QTc: 476 Interpretive Statements Sinus rhythm Prominent P waves, nondiagnostic LVH by voltage Baseline wander in lead(s) II,V1 Compared to ECG 11/21/2020 16:37:10 Left ventricular hypertrophy now present Sinus tachycardia no longer present T-wave abnormality no longer present Electronically Signed On 12-19-2020 6:48:11 NEW [employer] SALESPERSON by John Viramontes [email or web address] <ELECTRONICALLY SIGNED> By: John Viramontes MD, FAC 12/19/20 0648 1516 1516 John Viramontes MD, [facility] /EPI
[2020-12-19 07:24] VITALS: BP 149/88
--- NOTE | 2020-12-19 07:50 | NUR ---
PT ARRIVED FROM ER VIA CART, PLACED IN ROOM 354. ADMISSION ASSESSMENTS COMPLETED. O2 AT 10L PER NC THOUGH PT ARRIVED WITH NON-REBREATHER IN PLACE. LUNGS DIMISHED THROUGHOUT, DENIES ANY COUGH. X2 EPISODES OF DIARHEA OVERNIGHT. NOTED COVID RAPID PCR WAS NEGATIVE.
--- NOTE | 2020-12-19 11:41 | NUR ---
INITIAL ASSESSMENT/DISCHARGE NOTE: ED reviewed chart and spoke with nursing and attending physician. Pt was admitted from [facility] due to hypoxia. Pt placed in Enhanced Isolation due to hx of COVID. Pt's test was negative. Pt is medically stable to discharge back to [facility] today. ED faxed clinical info and discharge orders/summary to [facility] and notified Ynes in admissions, who confirms they are able to accept pt back today. ED spoke with pt via phone. Introduced role of ED. Pt is alert/orientated x 4. Pt is agreeable with returning to [facility] today. Pt is on 3L of O2. Awaiting transportation time from facility. Chart copy requested. ED is following to finalize discharge plan.
--- NOTE | 2020-12-19 15:38 | NUR ---
ASSUMED PATIET CARE AT 0700. A/0 X4. PATIENT ON 3L /NC. NO SOB NOTED. PICC LINE DRESSING CHANGED PER IN TEAM. DC TO SNF NOW.
== END 2020-12-19 15:39 | DRG 871 ==
LOC: ER 14:39 → 3W 17:41 → EROBS 17:41 → 3W 19:06
PROVIDERS: Nurse Practitioner; ADMIT Hospitalist; ATTEND Hospitalist
PROC: 5A0935A Assistance with Respiratory Ventilation, Less than 24 Consecutive Hours, High Flow/Velocity Cannula (ICD-10-PCS; principal; 2020-12-18)
DX: A41.9 Sepsis, unspecified organism (principal); J96.21 Acute and chronic respiratory failure with hypoxia; E43 Unspecified severe protein-calorie malnutrition; N18.6 End stage renal disease; J18.9 Pneumonia, unspecified organism; N17.9 Acute kidney failure, unspecified; Z68.41 Body mass index [BMI] 40.0-44.9, adult; I12.0 Hypertensive chronic kidney disease with stage 5 chronic kidney disease or end stage renal disease; S71.002A Unspecified open wound, left hip, initial encounter; L08.9 Local infection of the skin and subcutaneous tissue, unspecified; M06.9 Rheumatoid arthritis, unspecified; E03.9 Hypothyroidism, unspecified; F41.1 Generalized anxiety disorder; R53.81 Other malaise; X58.XXXA Exposure to other specified factors, initial encounter; E66.9 Obesity, unspecified; Z20.822 Contact with and (suspected) exposure to COVID-19; Z96.642 Presence of left artificial hip joint; Y93.89 Activity, other specified; Y92.89 Other specified places as the place of occurrence of the external cause; Y99.8 Other external cause status; Z79.01 Long term (current) use of anticoagulants; Z79.899 Other long term (current) drug therapy; Z88.5 Allergy status to narcotic agent; Z88.8 Allergy status to other drugs, medicaments and biological substances; Z86.16 Personal history of COVID-19
CPT/HCPCS: 10879